=== PATIENT | female | born 1970 | race Caucasian/White ===

== ENCOUNTER 2021-04-07 11:43 | Emergency (ER) | payer BC ==
--- NOTE | 2021-04-07 14:12 | RAD REPORT ---
EXAM DESCRIPTION: RAD - Foot Right 3 View - 04/07/2021 2:02 pm CLINICAL HISTORY: Right foot pain status post injury FINDINGS: No fracture or dislocation is seen A radiopaque foreign body is not visualized
--- NOTE | 2021-04-07 14:27 | EDPHYS ---
Physician Documentation [facility] Name: Hilda Miller Age: 50 yrs Sex: Female : 1970 Arrival Date: 04/07/2021 Time: 11:44 Bed 12 Private MD: ED Physician Jacobo Melendez HPI: 04/07 12:16 This 50 yrs old Female presents to ER via Wheelchair with complaints of jmm Puncture Wound To Foot - stepped on nail. 12:16 The patient presents with an injury. Onset: The symptoms/episode began/occurred jmm acutely, today. Modifying factors: The symptoms are alleviated by nothing, the symptoms are aggravated by nothing. Associated signs and symptoms: Pertinent positives: Pain. The patient has not experienced similar symptoms in the past. This is a 50-year-old female no chronic conditions presents emerged part with complaints of left plantar foot pain after stepping on a nail. Nail went through a tennis shoe. Patient is up-to-date on her tetanus immunization.. Historical: - Allergies: 11:49 Amoxicillin; aa5 11:49 Latex, Natural Rubber; aa5 - PMHx: 11:49 None; aa5 - Immunization history:: Last tetanus immunization: < 5 years ago. - Social history:: Smoking status: Patient denies any tobacco usage or history of. ROS: 12:16 Constitutional: Negative for fever, chills, and weight loss, Cardiovascular: Negative jmm for chest pain, palpitations, and edema, Respiratory: Negative for shortness of breath, cough, wheezing, and pleuritic chest pain. 12:16 Skin: Positive for puncture. 12:16 All other systems are negative. Exam: 12:16 Constitutional: This is a well developed, well nourished patient who is awake, alert, jmm and in no acute distress. Head/Face: atraumatic. Eyes: EOMI, no conjunctival erythema appreciated ENT: Moist Mucus Membranes Neck: Trachea midline, Supple Chest/axilla: Normal chest wall appearance and motion. Cardiovascular: Regular rate and rhythm. No edema appreciated Respiratory: Normal respirations, no respiratory distress appreciated Abdomen/GI: Non distended, soft Back: Normal ROM 12:16 Skin: Small puncture noted to the ball of the left foot, no erythema, no purulent drainage. 12:16 Neuro: Orientation: is normal, Mentation: is normal, Memory: is normal. 12:16 Psych: Behavior/mood is pleasant, cooperative. Vital Signs: 11:48 BP 183 / 118; Pulse 73; Resp 16 S; Temp 98.5(TE); Pulse Ox 100% on R/A; Weight 54.43 kg aa5 (R); Height 5 ft. 0 in. (152.40 cm) (R); 12:15 BP 164 / 103; Pulse 75; Resp 16; Pulse Ox 100% ; vg1 11:48 Body Mass Index 23.44 (54.43 kg, 152.40 cm) aa5 MDM: 13:05 Patient medically screened. [facility] 14:25 Data reviewed: vital signs, nurses notes. Counseling: I had a detailed discussion with magda the patient and/or guardian regarding: the historical points, exam findings, and any diagnostic results supporting the discharge/admit diagnosis, radiology results, the need for outpatient follow up, to return to the emergency department if symptoms worsen or persist or if there are any questions or concerns that arise at home. ED course: X-ray negative. Patient will be prescribed Levaquin for prophylactic use. Patient is given wound infection return precautions. Patient understood and agrees plan of care.. 04/07 12:16 Order name: Foot Right 3 View XRAY; Complete Time: 14:15 [facility] Administered Medications: No medications were administered Disposition: 16:33 Co-signature as Attending Physician, Jacobo Melendez MD I agree with the assessment and kdr plan of care. Disposition Summary: 04/07/21 14:26 Discharge Ordered Location: Home [facility] Condition: Stable [facility] Diagnosis - Plantar puncture wound [facility] Followup: [facility] - With: Ty Jules DPM - When: 2 - 3 days - Reason: Recheck today's complaints, Continuance of care, Re-evaluation by your physician Discharge Instructions: - Discharge Summary Sheet [facility] - Puncture Wound [facility] Forms: - Medication Reconciliation Form [facility] - Thank You Letter [facility] - Antibiotic Education [facility] - Prescription Opioid Use [facility] Prescriptions: - levofloxacin 750 mg Oral Tablet - take 1 tablet by ORAL route once daily for 7 days; 7 tablet; Refills: 0, [facility] Product Selection Permitted Signatures: Dispatcher [employer] EDJacobo Meier MD MD kdr Mickail, Joel, PA PA jmm Milka Medina, RN RN aa5
--- NOTE | 2021-04-07 14:27 | ER ---
Nurse's Notes [facility] Name: Hilda Miller Age: 50 yrs Sex: Female : 1970 Arrival Date: 04/07/2021 Time: 11:44 Bed 12 Private MD: Diagnosis: Plantar puncture wound Presentation: 04/07 11:48 Chief complaint: Patient states: stepped on a nail yesterday. Pt reports last tetanus aa5 vaccine was June 2020. Coronavirus screen: At this time, the client does not indicate any symptoms associated with coronavirus-19. Ebola Screen: Patient negative for fever greater than or equal to 101.5 degrees Fahrenheit, and additional compatible Ebola Virus Disease symptoms. Initial Sepsis Screen: Does the patient meet any 2 criteria? No. Patient's initial sepsis screen is negative. Does the patient have a suspected source of infection? No. Patient's initial sepsis screen is negative. Risk Assessment: Do you want to hurt yourself or someone else? Patient reports no desire to harm self or others. Onset of symptoms was March 2021. 11:48 Method Of Arrival: Wheelchair aa5 11:48 Acuity: JORGE 5 aa5 Historical: - Allergies: 11:49 Amoxicillin; aa5 11:49 Latex, Natural Rubber; aa5 - PMHx: 11:49 None; aa5 - Immunization history:: Last tetanus immunization: < 5 years ago. - Social history:: Smoking status: Patient denies any tobacco usage or history of. Screenin:16 Abuse screen: Denies threats or abuse. Nutritional screening: No deficits noted. vg1 Tuberculosis screening: No symptoms or risk factors identified. Fall Risk No fall in past 12 months (0 pts). No secondary diagnosis (0 pts). No IV (0 pts). Ambulatory Aid- None/Bed Rest/Nurse Assist (0 pts). Gait- Normal/Bed Rest/Wheelchair (0 pts) Mental Status- Oriented to own ability (0 pts). Total Johnson Fall Scale indicates No Risk (0-24 pts). Assessment: 12:14 General: Appears in no apparent distress. comfortable, Behavior is calm, cooperative. vg1 Pain: Complains of pain in ball of right foot and arch of right foot Pain currently is 0 out of 10 on a pain scale. at worst was 5 out of 10 on a pain scale. Aggravated by weight bearing. Neuro: Level of Consciousness is awake, alert, obeys commands, Oriented to person, place, time, situation. Cardiovascular: Patient's skin is warm and dry. Respiratory: Airway is patent Respiratory effort is even, unlabored. Derm: Skin is healthy with good turgor, Skin is pink, warm \T\ dry. Musculoskeletal: Circulation, motion, and sensation intact. Injury Description: Puncture sustained to arch of right foot no bleeding noted, no swelling or redness. 14:21 Reassessment: Patient appears in no apparent distress at this time. No changes from vg1 previously documented assessment. Patient and/or family updated on plan of care and expected duration. Pain level reassessed. Patient is alert, oriented x 3, equal unlabored respirations, skin warm/dry/pink. Vital Signs: 11:48 BP 183 / 118; Pulse 73; Resp 16 S; Temp 98.5(TE); Pulse Ox 100% on R/A; Weight 54.43 kg aa5 (R); Height 5 ft. 0 in. (152.40 cm) (R); 12:15 BP 164 / 103; Pulse 75; Resp 16; Pulse Ox 100% ; vg1 11:48 Body Mass Index 23.44 (54.43 kg, 152.40 cm) aa5 ED Course: 11:44 Patient arrived in ED. am2 11:49 Triage completed. aa5 11:49 Arm band placed on. aa5 12:05 Ever Gilman PA is PHCP. jm 12:05 Jacobo Melendez MD is Attending Physician. [facility] 12:07 Coco Haywood, RN is Primary Nurse. vg1 12:16 Patient has correct armband on for positive identification. Call light in reach. vg1 12:16 Patient did not have IV access during this emergency room visit. vg1 14:02 Foot Right 3 View XRAY In Process Unspecified. EDMS 14:26 Ty Jules DPM is Referral Physician. [facility] 14:37 No provider procedures requiring assistance completed. vg1 Administered Medications: No medications were administered Outcome: 14:26 Discharge ordered by . [facility] 14:37 Discharged to home ambulatory. vg1 14:37 Condition: stable 14:37 Discharge instructions given to patient, Instructed on discharge instructions, follow up and referral plans. medication usage, wound care, Demonstrated understanding of instructions, follow-up care, medications, Prescriptions given X 1. 14:38 Patient left the ED. vg1 Signatures: Dispatcher [employer] EDEver Cancino PA PA jmm Calderon, Audri, RN RN aa5 Odette Bray Victoria, RN RN vg1
[2021-04-07 15:06] VITALS: TEMP 98.5; O2SAT 100
[2021-04-07 15:07] VITALS: BP 164/103
== END 2021-04-07 14:38 | disposition home or self-care (01) ==
LOC: ER 11:43
DX: S91.332A Puncture wound without foreign body, left foot, initial encounter (principal); W45.0XXA Nail entering through skin, initial encounter; Y93.01 Activity, walking, marching and hiking; Z88.1 Allergy status to other antibiotic agents; Z91.040 Latex allergy status; Z91.048 Other nonmedicinal substance allergy status
CPT/HCPCS: 99283

== ENCOUNTER 2022-01-07 15:20 | Emergency (ER) | payer BC ==
--- NOTE | 2022-01-07 16:32 | RAD REPORT ---
EXAM DESCRIPTION: CT - Spine Lumbar Wo Con - 01/07/2022 4:17 pm CLINICAL HISTORY: Radiculopathy. Back trauma, no prior imaging COMPARISON: <Comparisons> TECHNIQUE: Axial noncontrast CT imaging of the lumbar spine was performed with coronal and sagittal re-formatted images. All CT scans are performed using dose optimization technique as appropriate and may include automated exposure control or mA/KV adjustment according to patient size. FINDINGS: No acute lumbar spine fracture seen. No aggressive marrow pattern or malalignment. Moderate sized midline hematoma upper level of L4 and L5 in the subcutaneous tissues posteriorly. Mild scattered endplate spurs. Intervertebral disc disease assessment is inherently limited by CT. W ithin these limitations, no high-grade canal stenosis suspected. Cholecystectomy. Hepatic steatosis. IMPRESSION: No acute fracture. Moderate size subcutaneous hematoma in the dorsal subcutaneous tissue s overlying the spine at L4 on L5 .
--- NOTE | 2022-01-07 16:39 | ER ---
Nurse's Notes [facility] Name: Hilda Miller Age: 51 yrs Sex: Female : 1970 Arrival Date: 01/07/2022 Time: 15:22 Bed 13 Private MD: Diagnosis: back hematoma Presentation: 01/07 15:32 Chief complaint: Patient states: Fell 10 days ago and hit buttocks on marble trash can. ll1 Bruising noted to buttocks. Hard lump to lower spine that is still painful. Tingling to both legs now so she came to get checked. Gait steady. No loss of bowel/bladder control. Coronavirus screen: Client denies travel out of the [place] in the last 14 days. At this time, the client does not indicate any symptoms associated with coronavirus-19. Ebola Screen: Patient denies travel to an Ebola-affected area in the 21 days before illness onset. Initial Sepsis Screen: Does the patient meet any 2 criteria? No. Patient's initial sepsis screen is negative. Does the patient have a suspected source of infection? Yes: Bone or joint infection. Risk Assessment: Do you want to hurt yourself or someone else? Patient reports no desire to harm self or others. Onset of symptoms was December 28, 2021. 15:32 Method Of Arrival: Ambulatory ll1 15:32 Acuity: JORGE 3 ll1 15:51 Coronavirus screen: Vaccine status: Patient reports receiving the 2nd dose of the covid ll1 vaccine. Triage Assessment: 15:53 General: Appears uncomfortable, Behavior is calm, cooperative, appropriate for age. ll1 Pain: Complains of pain in buttocks Pain currently is 2 out of 10 on a pain scale. Quality of pain is described as aching, Aggravated by increased activity, weight bearing. Musculoskeletal: Circulation, motion, and sensation intact. Capillary refill < 3 seconds, Tenderness present in lower back/upper buttocks region Reports pain in buttocks. Historical: - Allergies: 15:32 Amoxicillin; ll1 15:32 Latex, Natural Rubber; ll1 - PMHx: 15:52 GERD; pre diabetes; ll1 - PSHx: 15:52 Appendectomy; Cholecystectomy; section; knee SX; ll1 - Immunization history:: Adult Immunizations up to date. - Social history:: Smoking status: Patient denies any tobacco usage or history of. Screenin:02 Abuse screen: Denies threats or abuse. Denies injuries from another. Nutritional ph screening: No deficits noted. Tuberculosis screening: No symptoms or risk factors identified. Fall Risk None identified. Assessment: 16:00 General: Appears in no apparent distress. comfortable, well groomed, Behavior is calm, ph cooperative, appropriate for age. Pain: Complains of pain in coccyx, left lower back and right lower back. Neuro: Level of Consciousness is awake, alert, obeys commands, Oriented to person, place, time, situation. Cardiovascular: Capillary refill < 3 seconds in bilateral fingers Patient's skin is warm and dry. Respiratory: Airway is patent Respiratory effort is even, unlabored. Derm: Skin is intact, is healthy with good turgor, Skin is pink, warm \T\ dry. Bruising that is on low back area. Musculoskeletal: Circulation, motion, and sensation intact. Range of motion: intact in all extremities. Vital Signs: 15:51 BP 154 / 107; Pulse 101; Resp 17; Temp 97.3; Pulse Ox 99% ; Weight 52.16 kg; Height 5 ll1 ft. 0 in. (152.40 cm); Pain 2/10; 15:51 Body Mass Index 22.46 (52.16 kg, 152.40 cm) ll1 ED Course: 15:22 Patient arrived in ED. mr 15:26 Neeta Cardozo PA is PHCP. en 15:26 Sterling Polk MD is Attending Physician. en 15:29 Radha Hines, RN is Primary Nurse. ph 15:32 Arm band placed on Patient placed in an exam room, on a stretcher. ll1 15:34 Triage completed. ll1 16:19 CT Lumbar Spine Wo Con In Process Unspecified. EDMS 16:37 Julio César Stanton MD is Referral Physician. en 17:06 No provider procedures requiring assistance completed. Patient did not have IV access ph during this emergency room visit. 17:07 Patient has correct armband on for positive identification. Bed in low position. Call ph light in reach. Administered Medications: 16:50 Drug: Ibuprofen 800 mg Route: PO; ph 17:00 Follow up: Response: No adverse reaction; Medication administered at discharge. ph Medication: 17:06 VIS not applicable for this client. ph Outcome: 16:38 Discharge ordered by MD. [place] 17:07 Discharged to home ambulatory. ph 17:07 Condition: good 17:07 Discharge instructions given to patient, Instructed on discharge instructions, follow up and referral plans. medication usage, Demonstrated understanding of instructions, follow-up care, medications, Prescriptions given X 1. 17:07 Patient left the ED. ph Signatures: Dispatcher [employer] EDKY Rizvi Estefani Radha Reed RN RN Gabriela Melendez RN RN ll1 Neeta Cardozo PA PA en
--- NOTE | 2022-01-07 16:39 | EDPHYS ---
Physician Documentation [facility] Name: Hilda Miller Age: 51 yrs Sex: Female : 1970 Arrival Date: 01/07/2022 Time: 15:22 Bed 13 Private MD: ED Physician Sterling Polk HPI: 01/07 15:46 This 51 yrs old Female presents to ER via Ambulatory with complaints of Fall en Injury. 15:46 51 yo F with no known PMH presents to ED with tingling to legs s/p fall 10d ago. Pt is en petite, lost balance in bathroom, and fell into trash can. Pt reports being stuck in trash can. Was eventually able to extricate herself and has been alternating ice and heat. however, she has developed a large hematoma and extensive bruising over her lumbar spine and now has tingling to legs. no weakness, radiating of pain, or bowel/bladder incontinence. No trouble ambulating. . Historical: - Allergies: 15:32 Amoxicillin; ll1 15:32 Latex, Natural Rubber; ll1 - PMHx: 15:52 GERD; pre diabetes; ll1 - PSHx: 15:52 Appendectomy; Cholecystectomy; section; knee SX; ll1 - Immunization history:: Adult Immunizations up to date. - Social history:: Smoking status: Patient denies any tobacco usage or history of. ROS: 15:46 Constitutional: Negative for fever, chills, and weight loss. en 15:46 Constitutional: Negative for body aches, chills, fatigue, fever. 15:46 Abdomen/GI: Negative for abdominal pain, nausea and vomiting. 15:46 Back: Positive for extensive bruising to low back. 15:46 MS/extremity: Positive for tingling, Negative for no weakness. 15:46 Skin: Positive for ecchymosis. 15:46 All other systems are negative. Exam: 15:46 Constitutional: This is a well developed, well nourished patient who is awake, alert, en and in no acute distress. 15:46 Constitutional: The patient appears in no acute distress, alert, awake. 15:46 ENT: Mouth: Lips: moist, Oral mucosa: pink and intact, moist, Posterior pharynx: Airway: patent. 15:46 Neck: ROM/movement: limited range of motion, is not appreciated. 15:46 Cardiovascular: Rate: normal, Rhythm: regular, Pulses: no pulse deficits are appreciated, Heart sounds: normal, no murmur, no rub, no gallop. 15:46 Respiratory: the patient does not display signs of respiratory distress, Respirations: normal, Breath sounds: are clear throughout, no rales, rhonchi, no stridor, no wheezing. 15:46 Abdomen/GI: Inspection: abdomen appears normal. 15:46 Back: FROM lumbar spine with extensive ecchymosis and soft tissue hematoma over superior lumbar spine. 5/5 PF/DF/EHL. no foot drop, steady gait. 15:46 Musculoskeletal/extremity: ROM: intact in all extremities, full active range of motion. 15:46 Skin: extensive ecchymosis over lumbar spine. 15:46 Neuro: Orientation: is normal, to person, place \T\ time. Mentation: appropriate for stated age, Cranial nerves: CN II- XII are normal as tested, Motor: moves all fours, strength is 5/5 in all extremities, Sensation: no obvious gross deficits, numbness, tingling, normal peroneal nerve sensation, Deep tendon reflexes are 2+ (normal) in the right patellar and left patellar. 15:46 Psych: Behavior/mood is pleasant, cooperative, Affect is calm. Vital Signs: 15:51 BP 154 / 107; Pulse 101; Resp 17; Temp 97.3; Pulse Ox 99% ; Weight 52.16 kg; Height 5 ll1 ft. 0 in. (152.40 cm); Pain 2/10; 15:51 Body Mass Index 22.46 (52.16 kg, 152.40 cm) ll1 MDM: 15:52 Patient medically screened. en 16:35 Differential diagnosis: contusion, Hematoma, Fx. Data reviewed: vital signs, nurses en notes, radiologic studies, and as a result, I will CT lumbar spine. anticipate D/C home afterwards. ED course: Reviewed imaging. SQ hematoma over lumbar spine. Will d/c home with ibuprofen and ortho f/u. 01/07 15:46 Order name: CT Lumbar Spine Wo Con; Complete Time: 16:35 en Administered Medications: 16:50 Drug: Ibuprofen 800 mg Route: PO; ph 17:00 Follow up: Response: No adverse reaction; Medication administered at discharge. ph Disposition Summary: 01/07/22 16:38 Discharge Ordered Location: Home en Problem: new en Symptoms: are unchanged en Condition: Stable en Diagnosis - back hematoma en Followup: en - With: Julio César Stanton MD - When: As needed - Reason: Discharge Instructions: - Discharge Summary Sheet en - Hematoma, [id number] en Forms: - Medication Reconciliation Form en - Thank You Letter en - Antibiotic Education en - Prescription Opioid Use en Prescriptions: - Ibuprofen 800 mg Oral Tablet - take 1 tablet by ORAL route every 12 hours As needed take with food; 20 tablet; en Refills: 0, Product Selection Permitted Signatures: Dispatcher [employer] EDRadha Sullivan RN RN Gabriela Melendez RN RN ll1 Neeta Cardozo PA PA en
[2022-01-07] MEDS ORDERED: IBUPROFEN 400 MG TAB ONE (16:57)
[2022-01-07 17:21] VITALS: BP 154/107; TEMP 97.3; O2SAT 99
== END 2022-01-07 17:07 | disposition home or self-care (01) ==
LOC: ER 15:20
DX: S30.0XXA Contusion of lower back and pelvis, initial encounter (principal); Z88.1 Allergy status to other antibiotic agents; Z91.040 Latex allergy status; Z91.048 Other nonmedicinal substance allergy status
CPT/HCPCS: 72131

== ENCOUNTER 2022-07-17 08:29 | Emergency (ER) | payer BC ==
[2022-07-17] MEDS ORDERED: CEFTRIAXONE 1000 MG/VIAL ONE (08:55)
[2022-07-17] MEDS ORDERED: NA CHLORIDE 0.9% 1,000 ML ONE (08:55)
--- NOTE | 2022-07-17 09:04 | RAD REPORT ---
EXAM DESCRIPTION: RAD - Chest Pa And Lat (2 Views) - 07/17/2022 8:54 am CLINICAL HISTORY: COUGH Chest pain. COMPARISON: No comparisons FINDINGS: The lungs are clear. The heart is upper limit of normal in size. No displaced fractures. S mall to moderate hiatal hernia suspected.
--- NOTE | 2022-07-17 09:15 | RAD REPORT ---
EXAM DESCRIPTION: CT - Stone Protocol - 07/17/2022 8:48 am CLINICAL HISTORY: Flank pain. flank pain COMPARISON: No comparisons TECHNIQUE: Axial images were obtained without oral or IV contrast. Lack of contrast limits solid org an and vascular assessment. The [id number] spans the entirety of the system partially obscuring uppermost abdomen and lung bases. Coronal reformatted images were obtained and reviewed. All CT scans are performed using dose optimization technique as appropriate and may include automated exposure control or mA/KV adjustment according to patient size. FINDINGS: The lower lung anna are clear. Cholecystectomy. Imaged portions of the liver and spleen show no suspicious findings on non-contrast imaging. The panc reas and adrenal glands are normal. No pathologic lymphadenopathy in the abdomen or pelvis. No urinary tract stones or obstructive uropathy. No bowel obstruction, free air, free fluid or abscess. Small appendicolith is suspected in the append ix. No significant bony abnormality. IMPRESSION: No urinary tract stones or obstructive uropathy.
[2022-07-17 09:29] LABS: Urine Blood Negative (Negative); Urine Glucose Negative (Negative); Urine Protein Negative (Negative); Urine pH 5.5 (5.0-7.0)
[2022-07-17 09:34] LABS: Hematocrit 45.5 % (36.0-45.0); Lymphocytes % 11.7 % (15.3-44.8); MCV 93.3 fL (80-100); MPV 8.7 fL (7.6-11.3); RBC Red Blood Cell Count 4.88 M/uL (3.86-4.86)
[2022-07-17 09:39] LABS: Urine Bacteria None Seen /HPF (<20); Urine Mucus Slight /HPF (None Seen); Urine RBC <5 /HPF (None Seen)
[2022-07-17 09:42] LABS: Protime INR 1.15
[2022-07-17 10:02] LABS: Albumin 4.1 g/dL (3.4-5.0); Bilirubin Direct 0.2 mg/dL (0-0.2); Bilirubin Total 0.5 mg/dL (0.2-1.0); Magnesium 1.7 mg/dL (1.6-2.4); Potassium 3.8 mmol/L (3.5-5.1); Protein, Total 8.6 g/dL (6.4-8.2); Troponin High Sensitivity 7.6 pg/mL (<58.9)
[2022-07-17 10:30] LABS: SARS-COV-2 RT PCR NEGATIVE (NEGATIVE)
--- NOTE | 2022-07-17 10:36 | RAD REPORT ---
EXAM DESCRIPTION: CT - Angio Aorta For Dissection - 07/17/2022 10:20 am CLINICAL HISTORY: Chest pain radiating to the back. cp COMPARISON: No comparisons TECHNIQUE: CT angiography of the aorta was performed with MIPs. All CT scans are performed using dose optimization technique as appropriate and may include automated exposure control or mA/KV adjustment according to patient size. FINDINGS: A left aortic arch is present with normal branching pattern of the great vessels.No acute aortic finding is seen such as aneurysm, penetrating ulcer or dissection. The celiac axis, SMA, ALICIA and renal arteries are patent. No evidence of pulmonary embolism. The lungs are essentially clear. The liver demonstrates no focal mass or biliary dilatation.Fatty liver noted. Cholecystectomy clips.T he spleen, pancreas, adrenal glands and kidneys are within normal limits for arterial phase imaging. No bowel obstruction, free fluid or abscess.Moderate stool retained throughout the colon.No pathologi c enlarged lymphadenopathy identified.Mild fibroid uterus. No fracture or worrisome bone lesion seen. IMPRESSION: No acute aortic finding is demonstrated. Fatty liver. Mild fibroid uterus.
[2022-07-17] MEDS ORDERED: AMLODIPINE 10 MG TAB ONE (10:44)
[2022-07-17] MEDS ORDERED: AZITHROMYCIN 250 MG TAB ONE (10:44)
--- NOTE | 2022-07-17 10:53 | EDPHYS ---
Physician Documentation [facility] Name: Hilda Miller Age: 52 yrs Sex: Female : 1970 Arrival Date: 07/17/2022 Time: 08:32 Bed 16 Private MD: ED Physician Antonio Reaves HPI: 07/17 09:51 This 52 yrs old Female presents to ER via Ambulatory with complaints of Chest diallo Congestion, Urinary Problem, Low Back Pain. 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 - Social history:: Smoking status: Patient denies any tobacco usage or history of. ROS: 10:15 Constitutional: Negative for fever, chills, and weight loss, Eyes: Negative for injury, diallo pain, redness, and discharge, ENT: Negative for injury, pain, and discharge, Neck: Negative for injury, pain, and swelling, Abdomen/GI: Negative for abdominal pain, nausea, vomiting, diarrhea, and constipation, : Negative for injury, bleeding, discharge, and swelling, MS/Extremity: Negative for injury and deformity, Skin: Negative for injury, rash, and discoloration, Neuro: Negative for headache, weakness, numbness, tingling, and seizure, Psych: Negative for depression, anxiety, suicide ideation, homicidal ideation, and hallucinations, Allergy/Immunology: Negative for hives, rash, and allergies, Endocrine: Negative for neck swelling, polydipsia, polyuria, polyphagia, and marked weight changes, Hematologic/Lymphatic: Negative for swollen nodes, abnormal bleeding, and unusual bruising. 10:15 Cardiovascular: Positive for chest pain, with cough, of the back and chest. 10:15 Respiratory: Positive for cough, with green sputum. 10:15 Back: Positive for pain at rest, of the lumbar area. Exam: 10:15 Constitutional: This is a well developed, well nourished patient who is awake, alert, diallo and in no acute distress. Head/Face: Normocephalic, atraumatic. Eyes: Pupils equal round and reactive to light, extra-ocular motions intact. Lids and lashes normal. Conjunctiva and sclera are non-icteric and not injected. Cornea within normal limits. Periorbital areas with no swelling, redness, or edema. ENT: Nares patent. No nasal discharge, no septal abnormalities noted. Tympanic membranes are normal and external auditory canals are clear. Oropharynx with no redness, swelling, or masses, exudates, or evidence of obstruction, uvula midline. Mucous membranes moist. Neck: Trachea midline, no thyromegaly or masses palpated, and no cervical lymphadenopathy. Supple, full range of motion without nuchal rigidity, or vertebral point tenderness. No Meningismus. Chest/axilla: Normal chest wall appearance and motion. Nontender with no deformity. No lesions are appreciated. Cardiovascular: Regular rate and rhythm with a normal S1 and S2. No gallops, murmurs, or rubs. Normal PMI, no JVD. No pulse deficits. Respiratory: Lungs have equal breath sounds bilaterally, clear to auscultation and percussion. No rales, rhonchi or wheezes noted. No increased work of breathing, no retractions or nasal flaring. Abdomen/GI: Soft, non-tender, with normal bowel sounds. No distension or tympany. No guarding or rebound. No evidence of tenderness throughout. Back: No spinal tenderness. No costovertebral tenderness. Full range of motion. Skin: Warm, dry with normal turgor. Normal color with no rashes, no lesions, and no evidence of cellulitis. MS/ Extremity: Pulses equal, no cyanosis. Neurovascular intact. Full, normal range of motion. Neuro: Awake and alert, GCS 15, oriented to person, place, time, and situation. Cranial nerves II-XII grossly intact. Motor strength 5/5 in all extremities. Sensory grossly intact. Cerebellar exam normal. Normal gait. 10:15 ECG was reviewed by the Attending Physician. Vital Signs: 08:41 BP 165 / 121; Pulse 111; Resp 17; Temp 98.6(O); Pulse Ox 98% on R/A; Weight 56.7 kg; ll1 Height 5 ft. 0 in. (152.40 cm); Pain 7/10; 10:02 BP 156 / 90; Pulse 100; Resp 18; Pulse Ox 97% on R/A; kr3 11:06 BP 164 / 94; Pulse 98; Resp 18; Pulse Ox 99% on R/A; kr3 12:07 BP 149 / 98; Pulse 92; Resp 18; Pulse Ox 98% on R/A; kr3 08:41 Body Mass Index 24.41 (56.70 kg, 152.40 cm) ll1 MDM: 08:[address] [facility] 10:18 Differential diagnosis: arthritis, strain, contusion, Herniated disc UTI. Data diallo reviewed: vital signs, nurses notes, lab test result(s), EKG, radiologic studies, CT scan, plain films. Data interpreted: child monitor: rate is 111 beats/min, rhythm is regular, Pulse oximetry: on room air is 98 %. Test interpretation: by ED physician or midlevel provider: ECG, plain radiologic studies. Counseling: I had a detailed discussion with the patient and/or guardian regarding: the historical points, exam findings, and any diagnostic results supporting the discharge/admit diagnosis, lab results, radiology results, the need for outpatient follow up, for definitive care, a family practitioner. 07/17 08:40 Order name: Basic Metabolic Panel; Complete Time: 10:31 [facility] 07/17 08:40 Order name: CBC with Diff; Complete Time: 09:44 [facility] 07/17 08:40 Order name: LFT's; Complete Time: 10: [facility] 07/17 08:40 Order name: Magnesium; Complete Time: 10: [facility] 07/17 08:40 Order name: NT PRO-BNP; Complete Time: 10: [facility] 07/17 08:40 Order name: PT-INR; Complete Time: 09:44 [facility] 07/17 08:40 Order name: Troponin HS; Complete Time: 10:31 [facility] 07/17 08:40 Order name: Chest Pa And Lat (2 Views) XRAY; Complete Time: 09:19 [facility] 07/17 08:40 Order name: COVID-19/FLU A+B; Complete Time: 10:31 [facility] 07/17 08:40 Order name: CT Stone Protocol; Complete Time: 09:19 [facility] 07/17 08:40 Order name: Urine Microscopic Only; Complete Time: 09:44 [facility] 07/17 09:29 Order name: Urine Dipstick-Ancillary; Complete Time: 09:37 EDMS 07/17 10:45 Order name: Troponin High Sensitivity [facility] 07/17 08:40 Order name: EKG; Complete Time: 08:41 [facility] 07/17 08:40 Order name: Cardiac monitoring; Complete Time: 09:40 [facility] 07/17 08:40 Order name: EKG - Nurse/Tech; Complete Time: 11:59 [facility] 07/17 08:40 Order name: IV Saline Lock; Complete Time: 09:29 [facility] 07/17 08:40 Order name: Labs collected and sent; Complete Time: 09:29 [facility] 07/17 08:40 Order name: O2 Per Protocol; Complete Time: 11:59 [facility] 07/17 08:40 Order name: O2 Sat Monitoring; Complete Time: 11:59 [facility] 07/17 08:40 Order name: Urine Dipstick-Ancillary (obtain specimen); Complete Time: 09:29 [facility] 07/17 09:49 Order name: CT Aorta for Dissection; Complete Time: 10:45 [facility] 07/17 10:58 Order name: Blood Pressure Recheck; Complete Time: 11:11 [facility] EC:15 Rate is 109 beats/min. Rhythm is regular. QRS [place] is Normal. PA interval is normal. [facility] QRS interval is normal. QT interval is normal. No Q waves. T waves are Normal. Clinical impression: Sinus tachycardia and No evidence of ischemia. Interpreted by me. Reviewed by me. Administered Medications: 09:40 Drug: NS 0.9% 1000 ml Route: IV; Rate: 1 bolus; Site: right antecubital; kr3 12:21 Follow up: Response: No adverse reaction; IV Status: Completed infusion; IV Intake: kr3 1000ml 09:40 Drug: Rocephin (cefTRIAXone) 1 grams Route: IV; Rate: per protocol; Site: right kr3 antecubital; 12:20 Follow up: Response: No adverse reaction; IV Status: Completed infusion; IV Intake: 12oxra7 10:47 Drug: Zithromax (azithromycin) 500 mg Route: PO; kr3 12:20 Follow up: Response: No adverse reaction kr3 10:47 Drug: Norvasc (amlodipine) 10 mg Route: PO; kr3 12:20 Follow up: Response: No adverse reaction kr3 11:15 Drug: ToPROL XL (metoprolol SUCCINATE XL) 50 mg Route: PO; kr3 12:20 Follow up: Response: No adverse reaction kr3 11:15 Drug: Aspirin Chewable Tablet 81 mg Route: PO; kr3 12:20 Follow up: Response: No adverse reaction kr3 Disposition Summary: 07/17/22 10:52 Discharge Ordered Location: Home diallo Problem: new diallo Condition: Stable diallo Diagnosis - Essential (primary) hypertension diallo - Acute upper respiratory infection, unspecified diallo - Cough diallo Followup: diallo - With: Private Physician - When: 2 - 3 days - Reason: Recheck today's complaints, Continuance of care, Re-evaluation by your physician Followup: diallo - With: Bala Handy MD - When: 2 - 3 days - Reason: Recheck today's complaints, Continuance of care, Re-evaluation by your physician Discharge Instructions: - Discharge Summary Sheet diallo - Hypertension, Adult diallo - Cool Mist Vaporizer diallo - Upper Respiratory Infection, Adult, [id number] diallo - Hypertension, Adult, [id number] diallo - Aspirin and Your Heart diallo - Cough, Adult diallo - Managing Your Hypertension diallo Forms: - Medication Reconciliation Form diallo - Thank You Letter diallo - Antibiotic Education diallo - Prescription Opioid Use [facility] Prescriptions: - Norvasc 10 mg Oral Tablet - take 1 tablet by ORAL route once daily; 30 tablet; Refills: 0, Product diallo Selection Permitted - Toprol XL 25 mg Oral tablet extended release 24 hr - take 1 tablet by ORAL route once daily; 30 tablet; Refills: 0, Product diallo Selection Permitted - Zithromax Z-Colby 250 mg Oral Tablet - take 1 tablet by ORAL route as directed for 5 days Day 1 - take two (2) tablets diallo one time. Day 2, 3, 4 , 5 take one (1) tablet once daily.; 6 tablet; Refills: 0, Product Selection Permitted - Guaifenesin AC 10-100 mg/5 mL Oral Liquid - take 7.5 milliliter by ORAL route every 6 hours As needed; [address]; [facility] Refills: 0, Product Selection Permitted Signatures: Dispatcher [employer] Antonio Cho MD MD cha Lewis, Lynsay RN RN ll1 Liliam Massey RN RN kr3 Corrections: (The following items were deleted from the chart) 09:55 09:45 Chest For PE Angio+CT.RAD.BRZ ordered. WILWV EDMS 12:19 08:40 PMHx: Pre Diabetes; ll1 kr3 12:18 Allergies: Oxycodone; kr3 kr3
--- NOTE | 2022-07-17 10:53 | ER ---
Nurse's Notes [facility] Name: Hilda Miller Age: 52 yrs Sex: Female : 1970 Arrival Date: 07/17/2022 Time: 08:32 Bed 16 Private MD: Diagnosis: Essential (primary) hypertension;Acute upper respiratory infection, unspecified;Cough Presentation: 07/17 08:41 Chief complaint: Patient states: Painful cough, chest congestion for 1 day. Reports ll1 urinary frequency and low back pain. No known fever. Coronavirus screen: Vaccine status: Patient reports receiving the 2nd dose of the covid vaccine. Client denies travel out of the [place] in the last 14 days. congestion, cough unrelated to allergies, Client presents with at least one sign or symptom that may indicate coronavirus-19. Standard/surgical mask placed on the client. Ebola Screen: Patient denies travel to an Ebola-affected area in the 21 days before illness onset. Initial Sepsis Screen: Does the patient meet any 2 criteria? HR > 90 bpm. No. Patient's initial sepsis screen is negative. Does the patient have a suspected source of infection? Yes: Productive cough/pneumonia. Risk Assessment: Do you want to hurt yourself or someone else? Patient reports no desire to harm self or others. Onset of symptoms was July 17, 2022. 08:41 Method Of Arrival: Ambulatory ll1 08:41 Acuity: JORGE 3 ll1 Triage Assessment: 08:43 General: Appears uncomfortable, ill, Behavior is calm, cooperative, appropriate for ll1 age. Pain: Complains of pain in back Pain currently is 7 out of 10 on a pain scale. Quality of pain is described as aching. EENT: Reports nasal congestion. Respiratory: Reports cough that is pain with cough. : Reports urinary frequency. Musculoskeletal: Reports pain in back. 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 - Social history:: Smoking status: Patient denies any tobacco usage or history of. Screenin:16 [facility] ED Fall Risk Assessment (Adult) History of falling in the last 3 months, kr3 including since admission No falls in past 3 months (0 pts) Confusion or Disorientation No (0 pts) Intoxicated or Sedated No (0 pts) Impaired Gait No (0 pts) Mobility Assist Device Used Altered Elimination No (0 pt) Score/Fall Risk Level 0 - 2 = Low Risk. Abuse screen: Denies threats or abuse. Nutritional screening: No deficits noted. Tuberculosis screening: No symptoms or risk factors identified. Assessment: 08:50 General: Appears in no apparent distress. comfortable, Behavior is calm, cooperative, kr3 appropriate for age. Pain: Complains of pain in pelvis. Neuro: Level of Consciousness is awake, alert, obeys commands, Oriented to person, place, time, situation. Cardiovascular: Patient's skin is warm and dry. Respiratory: Airway is patent Respiratory effort is even, unlabored, Respiratory pattern is regular, symmetrical. GI: Abdomen is round non-distended. : Reports urinary frequency. EENT: Derm: Skin is intact, is healthy with good turgor, Skin is dry. Musculoskeletal: Circulation, motion, and sensation intact. 10:02 Reassessment: Patient appears in no apparent distress at this time. Patient and/or kr3 family updated on plan of care and expected duration. Pain level reassessed. Patient is alert, oriented x 3, equal unlabored respirations, skin warm/dry/pink. 11:06 Reassessment: No changes from previously documented assessment. Patient and/or family kr3 updated on plan of care and expected duration. Pain level reassessed. Patient is alert, oriented x 3, equal unlabored respirations, skin warm/dry/pink. 11:09 Reassessment: pstient up for discharge, will discharge after re-evaluation of kr3 medication administered. 12:06 Reassessment: Patient appears in no apparent distress at this time. Patient and/or kr3 family updated on plan of care and expected duration. Pain level reassessed. Patient is alert, oriented x 3, equal unlabored respirations, skin warm/dry/pink. Vital Signs: 08:41 BP 165 / 121; Pulse 111; Resp 17; Temp 98.6(O); Pulse Ox 98% on R/A; Weight 56.7 kg; ll1 Height 5 ft. 0 in. (152.40 cm); Pain 7/10; 10:02 BP 156 / 90; Pulse 100; Resp 18; Pulse Ox 97% on R/A; kr3 11:06 BP 164 / 94; Pulse 98; Resp 18; Pulse Ox 99% on R/A; kr3 12:07 BP 149 / 98; Pulse 92; Resp 18; Pulse Ox 98% on R/A; kr3 08:41 Body Mass Index 24.41 (56.70 kg, 152.40 cm) ll1 ED Course: 08:32 Patient arrived in ED. rg4 08:33 Arm band placed on Patient placed in an exam room, on a stretcher. ll1 08:35 Liliam Massey, RN is Primary Nurse. kr3 08:35 Bed in low position. Call light in reach. Side rails up X 1. kr3 08:38 Antonio Reaves MD is Attending Physician. diallo 08:43 Triage completed. ll1 08:50 CT Stone Protocol In Process Unspecified. EDMS 08:56 Chest Pa And Lat (2 Views) XRAY In Process Unspecified. EDMS 09:29 Urine Microscopic Only Sent. em1 09:29 COVID-19/FLU A+B Sent. em1 09:30 Basic Metabolic Panel Sent. em1 09:30 CBC with Diff Sent. em1 09:30 LFT's Sent. em1 09:30 Magnesium Sent. em1 09:30 NT PRO-BNP Sent. em1 09:30 PT-INR Sent. em1 09:30 Troponin HS Sent. em1 09:30 Initial lab(s) drawn, by nh, sent to lab. Urine collected: clean catch specimen, COVID em1 swab sent to lab. Flu and/or RSV swab sent to lab. Inserted saline lock: 20 gauge in right antecubital area, using aseptic technique. Blood collected. 09:40 COVID-19/FLU A+B Sent. kr3 10:22 CT Aorta for Dissection In Process Unspecified. EDMS 10:51 Bala Handy MD is Referral Physician. diallo 12:17 No provider procedures requiring assistance completed. IV discontinued, intact, kr3 bleeding controlled, No redness/swelling at site. Pressure dressing applied. Administered Medications: 09:40 Drug: NS 0.9% 1000 ml Route: IV; Rate: 1 bolus; Site: right antecubital; kr3 12:21 Follow up: Response: No adverse reaction; IV Status: Completed infusion; IV Intake: kr3 1000ml 09:40 Drug: Rocephin (cefTRIAXone) 1 grams Route: IV; Rate: per protocol; Site: right kr3 antecubital; 12:20 Follow up: Response: No adverse reaction; IV Status: Completed infusion; IV Intake: [id number] 10:47 Drug: Zithromax (azithromycin) 500 mg Route: PO; kr3 12:20 Follow up: Response: No adverse reaction kr3 10:47 Drug: Norvasc (amlodipine) 10 mg Route: PO; kr3 12:20 Follow up: Response: No adverse reaction kr3 11:15 Drug: ToPROL XL (metoprolol SUCCINATE XL) 50 mg Route: PO; kr3 12:20 Follow up: Response: No adverse reaction kr3 11:15 Drug: Aspirin Chewable Tablet 81 mg Route: PO; kr3 12:20 Follow up: Response: No adverse reaction kr3 Medication: 12:18 VIS not applicable for this client. kr3 Intake: 12:20 IV: 10ml; Total: 10ml. kr3 12:21 IV: 1000ml; Total: 1010ml. kr3 Outcome: 10:52 Discharge ordered by MD. landrum 12:17 Discharged to home ambulatory. kr3 12:17 Condition: stable 12:17 Discharge instructions given to patient, Instructed on discharge instructions, follow up and referral plans. medication usage, Demonstrated understanding of instructions, follow-up care, medications. 12:22 Patient left the ED. kr3 Signatures: Dispatcher [employer] EDVT Antonio Reaves MD MD cha Martinez, Eric em1 Garcia, Rubi rg4 Gabriela Lundberg RN RN ll1 Liliam Massey RN RN kr3 Corrections: (The following items were deleted from the chart) 12:19 08:40 PMHx: Pre Diabetes; ll1 kr3 12:19 12:18 Allergies: Oxycodone; kr3 kr3
[2022-07-17] MEDS ORDERED: METOPROLOL XL 50 MG TAB PO ONE (11:16)
[2022-07-17] MEDS ORDERED: ASPIRIN EC 81 MG TAB PO ONE (11:17)
[2022-07-17] MEDS ORDERED: ASPIRIN 81 MG CHEWABLE TABLET ONE (11:20)
[2022-07-17 12:46] VITALS: TEMP 98.6
[2022-07-17 12:50] VITALS: BP 149/98; O2SAT 98
--- NOTE | 2022-07-19 17:52 | EKG ---
Test Date: 2022-07-17 Test Time: 09:40:37 Hand Cultivator: AMANUEL MEASUREMENT RESULTS: Intervals: Rate: 109 RI: 124 QRSD: 82 QT: 342 QTc: 460 [place]: P: 67 RI: 124 QRS: 47 T: 45 INTERPRETIVE STATEMENTS: Sinus tachycardia Possible Left atrial enlargement Borderline ECG No previous ECG available for comparison Electronically Signed On 07-19-22 17:46:38 PLASTERER FOREMAN by Cody Kerr
== END 2022-07-17 12:22 | disposition home or self-care (01) ==
LOC: ER 08:29
DX: J06.9 Acute upper respiratory infection, unspecified (principal); Z20.822 Contact with and (suspected) exposure to COVID-19; I10 Essential (primary) hypertension; Z88.1 Allergy status to other antibiotic agents; Z91.040 Latex allergy status; Z91.048 Other nonmedicinal substance allergy status
CPT/HCPCS: 96365; 93005; 85025; 80048; 36415; 83735; 85610; 80076; 84484 ×2; 83880; 0240U; 76377; 71275; 74175; 74176; 71046; 99284; 96366; Q9967; Q0144; J7030; 81003; 81015

== ENCOUNTER 2023-11-28 23:06 | Emergency (ER) | payer BC ==
[2023-11-28] MEDS ORDERED: predniSONE 20 MG TAB ONE (23:32)
[2023-11-28] MEDS ORDERED: CEPHALEXIN 250 MG CAP ONE (23:32)
--- NOTE | 2023-11-28 23:35 | EDPHYS ---
Physician Documentation [facility] Name: Hilda Miller Age: 53 yrs Sex: Female : 1970 Arrival Date: 11/28/2023 Time: 23:06 Bed 14 Private MD: Tahir Rodney ED Physician Papito Mooney HPI: 11/27 23:46 This 53 yrs old Female presents to ER via Ambulatory with complaints of Bee rt Sting. 23:46 Patient presents to the ED 1 day following a bee sting to the right hand. Patient rt states that today, she developed a streaking redness proximally as well as a pain. Denies any difficulty breathing, tongue swelling. Denies other acute complaints at this time, symptoms are mild in severity, no other aggravating or alleviating factors.. 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 - Infectious Disease History:: Denies. - Social history:: Smoking status: Patient denies any tobacco usage or history of. Patient uses alcohol, occasionally. Patient/guardian denies using alcohol. - Family history:: not pertinent. ROS: 23:46 Constitutional: Negative for fever, chills, and weight loss, Cardiovascular: Negative rt for chest pain, palpitations, and edema, Respiratory: Negative for shortness of breath, cough, wheezing, and pleuritic chest pain, Abdomen/GI: Negative for abdominal pain, nausea, vomiting, diarrhea, and constipation, Neuro: Negative for headache, weakness, numbness, tingling, and seizure, 23:46 Skin: Positive for erythema, Itching, Exam: 23:46 Constitutional: This is a well developed, well nourished patient who is awake, alert, rt and in no acute distress. Head/Face: Normocephalic, atraumatic. Chest/axilla: Normal chest wall appearance and motion. Nontender with no deformity. No lesions are appreciated. Cardiovascular: Regular rate and rhythm with a normal S1 and S2. No gallops, murmurs, or rubs. Normal PMI, no JVD. No pulse deficits. Respiratory: Lungs have equal breath sounds bilaterally, clear to auscultation and percussion. No rales, rhonchi or wheezes noted. No increased work of breathing, no retractions or nasal flaring. Abdomen/GI: Soft, non-tender, with normal bowel sounds. No distension or tympany. No guarding or rebound. No evidence of tenderness throughout. Neuro: Awake and alert, GCS 15, oriented to person, place, time, and situation. Cranial nerves II-XII grossly intact. Motor strength 5/5 in all extremities. Sensory grossly intact. Cerebellar exam normal. Normal gait. 23:46 Musculoskeletal/extremity: Mild swelling and erythema of the right hand at the site of the bee sting, there is streaking erythema proximally, noncircumferential. Pulses, motor, sensation are intact. Vital Signs: 23:11 BP 159 / 109; Pulse 86; Resp 16; Temp 97.3; Pulse Ox 99% on R/A; Weight 53.52 kg; pf1 Height 5 ft. 0 in. ; Pain 3/10; 23:49 BP 132 / 97; cm10 23:11 Body Mass Index 23.05 (53.52 kg, 152.4 cm) pf1 23:11 Pain Scale: Adult pf1 MDM: 23:12 Patient medically screened. rt 23:46 Differential Diagnosis Sting, cellulitis. Data reviewed: vital signs, nurses notes. rt Test considered but Not performed: Labs: Stable vital signs, mild appearing cellulitis, labs are not indicated.. Care significantly affected by the following chronic conditions: Hypertension. ED course: See no signs of anaphylaxis clinically, stable for outpatient care. Patient was instructed on EpiPen use and follow-up should signs of anaphylaxis occur.. Administered Medications: 23:36 Drug: Cephalexin PO 500 mg PO once Route: PO; cm10 23:49 Follow up: Response: No adverse reaction cm10 23:36 Drug: predniSONE PO 40 mg PO once Route: PO; cm10 23:49 Follow up: Response: No adverse reaction cm10 Disposition Summary: 11/28/23 23:34 Discharge Ordered Notes: Location: Home rt Problem: new rt Symptoms: are unchanged rt Condition: Stable rt Diagnosis - Toxic effect of venom of wasps rt - Cellulitis of right upper limb rt Followup: rt - With: Tahir Rodney DO - When: 5 - 6 days - Reason: Followup: rt - With: Emergency Department - When: As needed - Reason: Worsening of condition Discharge Instructions: - Discharge Summary Sheet rt - Bee, Wasp, or Hornet Sting, Adult rt - Cellulitis, Adult rt Forms: - Medication Reconciliation Form rt - Antibiotic Education rt - Prescription Opioid Use rt - Patient Portal Instructions rt - Leadership Thank You Letter rt Prescriptions: - EpiPen 0.3 mg/0.3 mL Injection Auto-Injector - administer 0.3 milliliter SUBCUTANEOUS route once as needed for anaphylaxis; 2 rt Each; Refills: 0, Product Selection Permitted - Cephalexin 500 mg Oral Capsule - take 1 capsule ORAL route every 6 hours for 10 days; 40 capsule; Refills: 0, rt Product Selection Permitted - Prednisone 20 mg Oral Tablet - take 2 tablets ORAL route once daily for 5 days; 10 tablet; Refills: 0, Product rt Selection Permitted Signatures: Papito Mooney MD MD rt Shameka Blanco, RN RN pf1 Hetal Mckeon RN RN cm10
--- NOTE | 2023-11-28 23:35 | ER ---
Nurse's Notes [facility] Name: Hilda Miller Age: 53 yrs Sex: Female : 1970 Arrival Date: 11/28/2023 Time: 23:06 Bed 14 Private MD: Tahir Rodney Diagnosis: Toxic effect of venom of wasps;Cellulitis of right upper limb Presentation: 11/27 23:11 Chief complaint: Patient states: wasp or bee sting to right hand and RUQ,onset pf1 yesterday, with redness that radiates up right arm with swelling. 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 23:11 Coronavirus screen: Client denies travel out of the [place] in the last 14 days. At this pf1 time, the client does not indicate any symptoms associated with coronavirus-19. Ebola Screen: Patient negative for fever greater than or equal to 101.5 degrees Fahrenheit, and additional compatible Ebola Virus Disease symptoms. Onset: The symptoms/episode began/occurred yesterday. Anaphylaxis evaluation, no signs or symptoms of anaphylaxis were noted. Initial Sepsis Screen: Does the patient meet any 2 criteria? No. Patient's initial sepsis screen is negative. Does the patient have a suspected source of infection? No. Patient's initial sepsis screen is negative. Risk Assessment: Do you want to hurt yourself or someone else? Patient reports no desire to harm self or others. Onset of symptoms was November 27, 2023. Care prior to arrival: Medication(s) given: Benadryl 25mg. 23:11 Method Of Arrival: Ambulatory pf1 23:11 Acuity: JORGE 4 pf1 Triage Assessment: 23:33 General: Appears in no apparent distress. comfortable, well groomed, well developed, pf1 Behavior is calm, cooperative, appropriate for age, quiet. Pain: Complains of pain in right hand Pain began 1 day ago. Derm: Skin is red, to right arm with swelling and redness to right hand. 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 - Infectious Disease History:: Denies. - Social history:: Smoking status: Patient denies any tobacco usage or history of. Patient uses alcohol, occasionally. Patient/guardian denies using alcohol. - Family history:: not pertinent. Screenin:35 [facility] ED Fall Risk Assessment (Adult) History of falling in the last 3 months, pf1 including since admission No falls in past 3 months (0 pts) Confusion or Disorientation No (0 pts) Intoxicated or Sedated No (0 pts) Impaired Gait No (0 pts) Mobility Assist Device Used No (0 pt) Altered Elimination No (0 pt) Score/Fall Risk Level 0 - 2 = Low Risk Oriented to surroundings, Maintained a safe environment, Educated pt \T\ family on fall prevention, incl call for assistance when getting out of bed, Assessed \T\ reinforced patient's understanding of fall precautions, Provided non-skid footwear, Hourly rounding (assess needs \T\ fall precautionary measures) done, Used ambulatory aids as needed (educated on \T\ assisted with), Used gait belt as appropriate. Abuse screen: Denies threats or abuse. Nutritional screening: No deficits noted. Tuberculosis screening: No symptoms or risk factors identified. Assessment: 23:49 General: Appears in no apparent distress. comfortable, Behavior is calm, cooperative, cm10 appropriate for age. Neuro: No deficits noted. Level of Consciousness is awake, alert, obeys commands, Oriented to person, place, time, situation. Respiratory: Airway is patent Respiratory effort is even, unlabored, Respiratory pattern is regular, symmetrical, Not auscultated. 23:50 Derm: Bee sting to right hand and RUQ. Redness and swelling noted. cm10 Vital Signs: 23:11 BP 159 / 109; Pulse 86; Resp 16; Temp 97.3; Pulse Ox 99% on R/A; Weight 53.52 kg; pf1 Height 5 ft. 0 in. ; Pain 3/10; 23:49 BP 132 / 97; cm10 23:11 Body Mass Index 23.05 (53.52 kg, 152.4 cm) pf1 23:11 Pain Scale: Adult pf1 ED Course: 23:09 Patient arrived in ED. mr 23:10 Prezas, Tahir, DO is Private Physician. mr 23:12 Papito Mooney MD is Attending Physician. rt 23:13 Hetal Mckeon, RN is Primary Nurse. cm10 23:16 Triage completed. pf1 23:34 Tahir Rodney DO is Referral Physician. rt 23:35 Arm band placed on right wrist. EKG completed in triage. Results shown to MD. pf1 23:48 Patient has correct armband on for positive identification. Provided Education on: cm10 Follow-up instructions. 23:48 No provider procedures requiring assistance completed. Patient did not have IV access cm10 during this emergency room visit. Administered Medications: 23:36 Drug: Cephalexin PO 500 mg PO once Route: PO; cm10 23:49 Follow up: Response: No adverse reaction cm10 23:36 Drug: predniSONE PO 40 mg PO once Route: PO; cm10 23:49 Follow up: Response: No adverse reaction cm10 Medication: 23:48 VIS not applicable for this client. cm10 Outcome: 23:34 Discharge ordered by MD. rt 23:50 Discharged to home ambulatory, with significant other, cm10 23:50 Condition: good 23:50 Discharge instructions given to patient, Instructed on discharge instructions, follow up and referral plans. medication usage, Demonstrated understanding of instructions, follow-up care, medications, Prescriptions given X 3, 23:51 Patient left the ED. cm10 Signatures: Estefani Rizvi, Reg Reg mr Papito Mooney MD MD rt Shameka Blanco RN RN pf1 Hetal Mckeon, ESTEPHANIA RN cm10 Corrections: (The following items were deleted from the chart) 23:35 23:31 Triage completed. pf1 pf1
[2023-11-29 00:32] VITALS: BP 132/97; TEMP 97.3; O2SAT 99
== END 2023-11-28 23:51 | disposition home or self-care (01) ==
LOC: ER 23:06
DX: T63.441A Toxic effect of venom of bees, accidental (unintentional), initial encounter (principal); L03.113 Cellulitis of right upper limb; Z88.0 Allergy status to penicillin; Z88.1 Allergy status to other antibiotic agents; Z88.8 Allergy status to other drugs, medicaments and biological substances; Z91.040 Latex allergy status
CPT/HCPCS: 99283; J7512